=== PATIENT | male | born 1980 | race Hispanic/Latino ===

== ENCOUNTER 2016-08-27 19:55 | Emergency (ER) | payer OTHER ==
[2016-08-27] MEDS ORDERED: MORPHINE 4 MG/ML 1ML SYRINGE As Ordered ONE (22:52)
[2016-08-27] MEDS ORDERED: NAPROXEN 250 MG TAB As Ordered ONE (22:52)
[2016-08-27] MEDS ORDERED: CYCLOBENZAPRINE 10 MG TAB As Ordered ONE (22:52)
[2016-08-27] MEDS ORDERED: OXYCODONE/APAP 5MG/325MG(BULK) 1 TAB TAB As Ordered ONE (22:54)
--- NOTE | 2016-08-27 23:15 | EDDOCDS ---
Physician Documentation [facility] Name: Jae Coto Age: 35 yrs Sex: Male : 1980 Arrival Date: 08/27/2016 Time: 19:55 Bed 14 Private MD: Benito Martines Disposition: 08/27/16 22:40 Discharged to Home/Self Care. Impression: Low back pain. - Condition is Stable. - Discharge Instructions: Back Pain, Adult, Musculoskeletal Pain, Back Pain, Adult, [id number]. - Prescriptions for Naprosyn 500 mg Oral Tablet - take 1 tablet by ORAL route 2 times per day take with food; 30 tablet. Percocet 5- 325 mg Oral Tablet - take 1 tablet by ORAL route every 6 hours As needed MDD: 4 tabs; 20 tablet. Cyclobenzaprine 10 mg Oral Tablet - take 1 tablet by ORAL route 3 times per day As needed; 15 tablet. - Medication Reconciliation, Local Pharmacy Hours, Work Release Form - 3 day form. - Follow up: Benito Mratines DO; When: 2 - 3 days; Reason: Continuance of care. - Problem is an acute exacerbation. - Symptoms have improved. Historical: - Allergies: no known allergies; - Home Meds: 1. ibuprofen 600 mg Oral tab every 4 hours - PMHx: none; - PSHx: none; - Social history: Smoking status: Patient states was never smoker of tobacco. No barriers to communication noted, The patient speaks fluent Sami. - Family history: Not pertinent. - : The pt / caregiver states he / she is not on anticoagulants. Home medication list is obtained from the patient. - Exposure Risk Screening:: None identified. Vital Signs: 08/27 19:57 BP 134 / 81; Pulse 70; Resp 18; Temp 97.7(O); Pulse Ox 100% on R/A; Weight 157.85 kg / elp 348 lbs (R); Height 6 ft. 2 in. (187.96 cm) (R); Pain 10/10; 22:58 BP 127 / 77; Pulse 53; Resp 18; Temp 97.2(TE); Pulse Ox 96% on R/A; Pain 9/10; nb2 19:57 Body Mass Index 44.68 (157.85 kg, 187.96 cm) elp MDM: 22:39 morphine 4 mg IM once ordered. mm11 22:39 oxyCODONE-acetaminophen 4 pack 5 mg-325 mg 1 packets PO once; Dispense with pt, take as mm11 per instruction on package ordered. 22:39 Cyclobenzaprine 10 mg PO once ordered. mm11 22:39 Naproxen 500 mg PO once; administer with food or milk ordered. mm11 Administered Medications: 22:55 Drug: morphine 4 mg [morphine 4 mg/mL intravenous cartridge (1 mL)] Route: IM; Site: cf2 left deltoid; 22:55 Drug: oxyCODONE-acetaminophen 4 pack 1 packets [oxycodone-acetaminophen 5 mg-325 mg cf2 tablet (1 tabs)] {Co-Signature: sls1 (Tosin Armenta RN).} Route: PO; 22:55 Drug: Cyclobenzaprine 10 mg [cyclobenzaprine 10 mg tablet (1 tabs)] Route: PO; cf2 22:55 Drug: Naproxen 500 mg [naproxen 250 mg tablet (2 tabs)] Route: PO; cf2 Signatures: Bobby Moulton, DO mm11 Madelaine Rider RN RN rs3 Thu Oquendo RN RN cf2 Tosin Armenta RN sls1 MTDD
--- NOTE | 2016-08-27 23:15 | EDDOCDS ---
Nurse's Notes [facility] Name: Jae Coto Age: 35 yrs Sex: Male : 1980 Arrival Date: 08/27/2016 Time: 19:55 Bed 14 Private MD: Benito Martines Diagnosis: Low back pain Presentation: 08/27 20:08 Presenting complaint: Patient states: lower back pain since yesterday. [place] "pop" when rs3 getting out of truck. pain radiating to len[place] legs. Acute neurological deficits are not present. Mechanism of Injury: No Mechanism of Injury. Adult Sepsis Screening: The patient does not have new or worsening altered mentation. Patient's respiratory rate is less than 22. Systolic blood pressure is greater than 100. Patient has a qSOFA score of 0- Negative Sepsis Screen. Suicide/Homicide risk assessment- the patient denies having any suicidal and/or homicidal ideations and does not present with any other emotional, behavioral or mental health complaints. Status: Patient is not a office services representative or dependent. Transition of care: patient was not received from another setting of care. 20:08 Acuity: AB Level 4 rs3 20:08 Method Of Arrival: Walkin/Carried/Asstd rs3 Triage Assessment: 20:10 General: Appears in no apparent distress. Pain: Location: lumbar area. HIV screening NA rs3 for this visit Offered previously. Musculoskeletal: Parent/caregiver report the patient having Pain is 7 out of 10 on a pain scale. Historical: - Allergies: no known allergies; - Home Meds: 1. ibuprofen 600 mg Oral tab every 4 hours - PMHx: none; - PSHx: none; - Social history: Smoking status: Patient states was never smoker of tobacco. No barriers to communication noted, The patient speaks fluent Frisian. - Family history: Not pertinent. - : The pt / caregiver states he / she is not on anticoagulants. Home medication list is obtained from the patient. - Exposure Risk Screening:: None identified. Screenin:10 Screening information is obtained from the patient. Fall risk: No risks identified. cf2 Assistance ADL's: requires no assistance with activities of daily living. Abuse/DV Screen: The patient / caregiver reports he/she is: not in a situation that causes fear, pain or injury. Nutritional screening: No deficits noted. Advance Directives: Further advance directive information is declined. home support is adequate. Assessment: 21:53 General: Patient received from waiting room . cf2 23:10 Reassessment: Patient appears in no apparent distress at this time. Patient denies pain cf2 at this time. Adult Sepsis Screening: The patient does not have new or worsening altered mentation. Patient's respiratory rate is less than 22. Systolic blood pressure is greater than 100. Patient has a qSOFA score of 0- Negative Sepsis Screen. Pain: Denies pain. Neurological: No deficits noted. EENT: No deficits noted. Cardiovascular: No deficits noted. Respiratory: No deficits noted. GI: No deficits noted. : No deficits noted. Derm: No deficits noted. Musculoskeletal: No deficits noted. Injury Description: No known injury. Vital Signs: 19:57 BP 134 / 81; Pulse 70; Resp 18; Temp 97.7(O); Pulse Ox 100% on R/A; Weight 157.85 kg elp (R); Height 6 ft. 2 in. (187.96 cm) (R); Pain 10/10; 22:58 BP 127 / 77; Pulse 53; Resp 18; Temp 97.2(TE); Pulse Ox 96% on R/A; Pain 9/10; nb2 19:57 Body Mass Index 44.68 (157.85 kg, 187.96 cm) [facility] Vitals: 19:57 Log In Time: August 27, 2016 at 19:55. [facility] ED Course: 19:56 Patient visited by Hina Elkins PCA. elp 19:56 Benito Martines DO is Private Physician. elp 19:56 Patient moved to Waiting elp 19:57 Patient visited by Hina Elkins PCA. elp 19:57 Patient moved to Pre RCE elp 20:10 Triage Initiated rs3 21:44 Patient moved to 14 jo3 21:50 Thu Oquendo,VIDAL is Primary Nurse. cf2 21:50 Patient visited by Thu Oquendo,VIDAL. cf2 21:52 Patient visited by Thu Oquendo,VIDAL. cf2 22:26 Bobby Moulton DO is Attending Physician. mm11 22:26 Patient visited by Bobby Moulton DO. mm11 22:38 Patient visited by Bobby Moulton DO. mm11 22:40 Benito Martines DO is Referral Physician. mm11 22:58 Patient visited by Khadijah Estrada. nb2 23:09 Patient visited by Thu Oquendo RN. cf2 23:10 Patient visited by Thu Oquendo RN. cf2 23:10 The patient / caregiver is instructed regarding the plan of care and ED course. cf2 23:10 No IV's were initiated during this patient's visit. No procedures done that require cf2 assistance. Administered Medications: 22:55 Drug: morphine 4 mg [morphine 4 mg/mL intravenous cartridge (1 mL)] Route: IM; Site: cf2 left deltoid; 22:55 Drug: oxyCODONE-acetaminophen 4 pack 1 packets [oxycodone-acetaminophen 5 mg-325 mg cf2 tablet (1 tabs)] {Co-Signature: sls1 (Tosin Armenta RN).} Route: PO; 22:55 Drug: Cyclobenzaprine 10 mg [cyclobenzaprine 10 mg tablet (1 tabs)] Route: PO; cf2 22:55 Drug: Naproxen 500 mg [naproxen 250 mg tablet (2 tabs)] Route: PO; cf2 Order Results: There are currently no results for this order. Outcome: 22:40 Discharge ordered by Provider. mm11 23:10 Discharge Assessment: Patient awake, alert and oriented x 3. No cognitive and/or cf2 functional deficits noted. Patient verbalized understanding of disposition instructions. Patient awake and alert. Oriented to person, place and time. patient administered narcotics - yes. Pt provided with safe discharge. The following High Risk Discharge criteria are identified: None. Discharged to home. Condition: good Condition: stable. No special radiology studies were completed. Property :Personal belongings accompany Pt. 23:14 Patient left the ED. cf2 Signatures: Shani Mcpherson RN RN jo3 Maynard, Matthew, DO DO mm11 Madelaine Rider RN RN rs3 Hina Elkins, RESIDENTIAL TECH RESIDENTIAL TECH elp Thu Oquendo RN RN cf2 Khadijah Estrada nb2 Tosin Armenta RN sls1 MTDD
--- NOTE | 2016-08-30 00:15 | EDDOCDS ---
Nurse's Notes [facility] Name: Jae Coto Age: 35 yrs Sex: Male : 1980 Arrival Date: 08/27/2016 Time: 19:55 Bed 14 Private MD: Benito Martines Diagnosis: Low back pain Presentation: 08/27 20:08 Presenting complaint: Patient states: lower back pain since yesterday. [place] "pop" when rs3 getting out of truck. pain radiating to [place] legs. Acute neurological deficits are not present. Mechanism of Injury: No Mechanism of Injury. Adult Sepsis Screening: The patient does not have new or worsening altered mentation. Patient's respiratory rate is less than 22. Systolic blood pressure is greater than 100. Patient has a qSOFA score of 0- Negative Sepsis Screen. Suicide/Homicide risk assessment- the patient denies having any suicidal and/or homicidal ideations and does not present with any other emotional, behavioral or mental health complaints. Status: Patient is not a hosted services analyst or dependent. Transition of care: patient was not received from another setting of care. 20:08 Acuity: AB Level 4 rs3 20:08 Method Of Arrival: Walkin/Carried/Asstd rs3 Triage Assessment: 20:10 General: Appears in no apparent distress. Pain: Location: lumbar area. HIV screening NA rs3 for this visit Offered previously. Musculoskeletal: Parent/caregiver report the patient having Pain is 7 out of 10 on a pain scale. Historical: - Allergies: no known allergies; - Home Meds: 1. ibuprofen 600 mg Oral tab every 4 hours - PMHx: none; - PSHx: none; - Social history: Smoking status: Patient states was never smoker of tobacco. No barriers to communication noted, The patient speaks fluent Urdu. - Family history: Not pertinent. - : The pt / caregiver states he / she is not on anticoagulants. Home medication list is obtained from the patient. - Exposure Risk Screening:: None identified. Screenin:10 Screening information is obtained from the patient. Fall risk: No risks identified. cf2 Assistance ADL's: requires no assistance with activities of daily living. Abuse/DV Screen: The patient / caregiver reports he/she is: not in a situation that causes fear, pain or injury. Nutritional screening: No deficits noted. Advance Directives: Further advance directive information is declined. home support is adequate. Assessment: 21:53 General: Patient received from waiting room . cf2 23:10 Reassessment: Patient appears in no apparent distress at this time. Patient denies pain cf2 at this time. Adult Sepsis Screening: The patient does not have new or worsening altered mentation. Patient's respiratory rate is less than 22. Systolic blood pressure is greater than 100. Patient has a qSOFA score of 0- Negative Sepsis Screen. Pain: Denies pain. Neurological: No deficits noted. EENT: No deficits noted. Cardiovascular: No deficits noted. Respiratory: No deficits noted. GI: No deficits noted. : No deficits noted. Derm: No deficits noted. Musculoskeletal: No deficits noted. Injury Description: No known injury. Vital Signs: 19:57 BP 134 / 81; Pulse 70; Resp 18; Temp 97.7(O); Pulse Ox 100% on R/A; Weight 157.85 kg elp (R); Height 6 ft. 2 in. (187.96 cm) (R); Pain 10/10; 22:58 BP 127 / 77; Pulse 53; Resp 18; Temp 97.2(TE); Pulse Ox 96% on R/A; Pain 9/10; nb2 19:57 Body Mass Index 44.68 (157.85 kg, 187.96 cm) [facility] Vitals: 19:57 Log In Time: August 27, 2016 at 19:55. [facility] ED Course: 19:56 Patient visited by Hina Elkins PCA. elp 19:56 Benito Martines DO is Private Physician. elp 19:56 Patient moved to Waiting elp 19:57 Patient visited by Hina Elkins PCA. elp 19:57 Patient moved to Pre RCE elp 20:10 Triage Initiated rs3 21:44 Patient moved to 14 jo3 21:50 Thu Oquendo,VIDAL is Primary Nurse. cf2 21:50 Patient visited by Thu Oquendo,VIDAL. cf2 21:52 Patient visited by Thu Oquendo,VIDAL. cf2 22:26 Bobby Moulton DO is Attending Physician. mm11 22:26 Patient visited by Bobby Moulton DO. mm11 22:38 Patient visited by Bobby Moulton DO. mm11 22:40 Benito Martines DO is Referral Physician. mm11 22:58 Patient visited by Khadijah Estrada. nb2 23:09 Patient visited by Thu Oquendo RN. cf2 23:10 Patient visited by Thu Oquendo RN. cf2 23:10 The patient / caregiver is instructed regarding the plan of care and ED course. cf2 23:10 No IV's were initiated during this patient's visit. No procedures done that require cf2 assistance. 23:15 Patient name changed from Jae\\S\\\\S\\Coto\\S\\ to Jae\\S\\ \\S\\Coto. EDMS 08/28 09:28 T-Sheet-- Draft Copy was scanned into [employer] and attached to record. gb Administered Medications: 08/27 22:55 Drug: morphine 4 mg [morphine 4 mg/mL intravenous cartridge (1 mL)] Route: IM; Site: cf2 left deltoid; 22:55 Drug: oxyCODONE-acetaminophen 4 pack 1 packets [oxycodone-acetaminophen 5 mg-325 mg cf2 tablet (1 tabs)] {Co-Signature: sls1 (Tosin Armenta RN).} Route: PO; 22:55 Drug: Cyclobenzaprine 10 mg [cyclobenzaprine 10 mg tablet (1 tabs)] Route: PO; cf2 22:55 Drug: Naproxen 500 mg [naproxen 250 mg tablet (2 tabs)] Route: PO; cf2 Order Results: There are currently no results for this order. Outcome: 22:40 Discharge ordered by Provider. mm11 23:10 Discharge Assessment: Patient awake, alert and oriented x 3. No cognitive and/or cf2 functional deficits noted. Patient verbalized understanding of disposition instructions. Patient awake and alert. Oriented to person, place and time. patient administered narcotics - yes. Pt provided with safe discharge. The following High Risk Discharge criteria are identified: None. Discharged to home. Condition: good Condition: stable. No special radiology studies were completed. Property :Personal belongings accompany Pt. 23:14 Patient left the ED. cf2 Signatures: [facility] Mckenzie Crespo, Michele Reg Shani Mcpherson RN RN jo3 Bobby Moulton DO DO mm11 Madelaine RiderRN RN rs3 Hina Elkins, CAKE STRIPPER CAKE STRIPPER elp Thu OquendoRN RN cf2 Khadijah Estrada2 Tosin Armenta RN sls1 Chart Complete MTDD
--- NOTE | 2016-08-30 00:15 | EDDOCDS ---
Physician Documentation [facility] Name: Jae Coto Age: 35 yrs Sex: Male : 1980 Arrival Date: 08/27/2016 Time: 19:55 Bed 14 Private MD: Benito Martines Disposition: 08/27/16 22:40 Discharged to Home/Self Care. Impression: Low back pain. - Condition is Stable. - Discharge Instructions: Back Pain, Adult, Musculoskeletal Pain, Back Pain, Adult, [id number]. - Prescriptions for Naprosyn 500 mg Oral Tablet - take 1 tablet by ORAL route 2 times per day take with food; 30 tablet. Percocet 5- 325 mg Oral Tablet - take 1 tablet by ORAL route every 6 hours As needed MDD: 4 tabs; 20 tablet. Cyclobenzaprine 10 mg Oral Tablet - take 1 tablet by ORAL route 3 times per day As needed; 15 tablet. - Medication Reconciliation, Local Pharmacy Hours, Work Release Form - 3 day form. - Follow up: Benito Martines DO; When: 2 - 3 days; Reason: Continuance of care. - Problem is an acute exacerbation. - Symptoms have improved. Historical: - Allergies: no known allergies; - Home Meds: 1. ibuprofen 600 mg Oral tab every 4 hours - PMHx: none; - PSHx: none; - Social history: Smoking status: Patient states was never smoker of tobacco. No barriers to communication noted, The patient speaks fluent Vietnamese. - Family history: Not pertinent. - : The pt / caregiver states he / she is not on anticoagulants. Home medication list is obtained from the patient. - Exposure Risk Screening:: None identified. Vital Signs: 08/27 19:57 BP 134 / 81; Pulse 70; Resp 18; Temp 97.7(O); Pulse Ox 100% on R/A; Weight 157.85 kg / elp 348 lbs (R); Height 6 ft. 2 in. (187.96 cm) (R); Pain 10/10; 22:58 BP 127 / 77; Pulse 53; Resp 18; Temp 97.2(TE); Pulse Ox 96% on R/A; Pain 9/10; nb2 19:57 Body Mass Index 44.68 (157.85 kg, 187.96 cm) elp MDM: 22:39 morphine 4 mg IM once ordered. mm11 22:39 oxyCODONE-acetaminophen 4 pack 5 mg-325 mg 1 packets PO once; Dispense with pt, take as mm11 per instruction on package ordered. 22:39 Cyclobenzaprine 10 mg PO once ordered. mm11 22:39 Naproxen 500 mg PO once; administer with food or milk ordered. mm11 08/28 09:28 T-Sheet-- Draft Copy was scanned into [employer] and attached to record. gb Administered Medications: 08/27 22:55 Drug: morphine 4 mg [morphine 4 mg/mL intravenous cartridge (1 mL)] Route: IM; Site: cf2 left deltoid; 22:55 Drug: oxyCODONE-acetaminophen 4 pack 1 packets [oxycodone-acetaminophen 5 mg-325 mg cf2 tablet (1 tabs)] {Co-Signature: sls1 (Tosin Armenta RN).} Route: PO; 22:55 Drug: Cyclobenzaprine 10 mg [cyclobenzaprine 10 mg tablet (1 tabs)] Route: PO; cf2 22:55 Drug: Naproxen 500 mg [naproxen 250 mg tablet (2 tabs)] Route: PO; cf2 Signatures: Mckenzie Crespo, Reg Reg Bobby Jarrell, DO mm11 Madelaine Rider RN RN rs3 Thu Oquendo RN RN cf2 Tosin Armenta RN sls1 The chart was reviewed and I authenticate all verbal orders and agree with the evaluation and treatment provided.Attachments: 08/28 09:28 T-Sheet-- Draft Copy gb Chart Complete MTDD
--- NOTE | 2016-08-30 00:16 | EDDOCDS ---
Physician Documentation [facility] Name: Jae Coto Age: 35 yrs Sex: Male : 1980 Arrival Date: 08/27/2016 Time: 19:55 Bed 14 Private MD: Benito Martines Disposition: 08/27/16 22:40 Discharged to Home/Self Care. Impression: Low back pain. - Condition is Stable. - Discharge Instructions: Back Pain, Adult, Musculoskeletal Pain, Back Pain, Adult, [id number]. - Prescriptions for Naprosyn 500 mg Oral Tablet - take 1 tablet by ORAL route 2 times per day take with food; 30 tablet. Percocet 5- 325 mg Oral Tablet - take 1 tablet by ORAL route every 6 hours As needed MDD: 4 tabs; 20 tablet. Cyclobenzaprine 10 mg Oral Tablet - take 1 tablet by ORAL route 3 times per day As needed; 15 tablet. - Medication Reconciliation, Local Pharmacy Hours, Work Release Form - 3 day form. - Follow up: Benito Martines DO; When: 2 - 3 days; Reason: Continuance of care. - Problem is an acute exacerbation. - Symptoms have improved. Historical: - Allergies: no known allergies; - Home Meds: 1. ibuprofen 600 mg Oral tab every 4 hours - PMHx: none; - PSHx: none; - Social history: Smoking status: Patient states was never smoker of tobacco. No barriers to communication noted, The patient speaks fluent Arabic. - Family history: Not pertinent. - : The pt / caregiver states he / she is not on anticoagulants. Home medication list is obtained from the patient. - Exposure Risk Screening:: None identified. Vital Signs: 08/27 19:57 BP 134 / 81; Pulse 70; Resp 18; Temp 97.7(O); Pulse Ox 100% on R/A; Weight 157.85 kg / elp 348 lbs (R); Height 6 ft. 2 in. (187.96 cm) (R); Pain 10/10; 22:58 BP 127 / 77; Pulse 53; Resp 18; Temp 97.2(TE); Pulse Ox 96% on R/A; Pain 9/10; nb2 19:57 Body Mass Index 44.68 (157.85 kg, 187.96 cm) elp MDM: 22:39 morphine 4 mg IM once ordered. mm11 22:39 oxyCODONE-acetaminophen 4 pack 5 mg-325 mg 1 packets PO once; Dispense with pt, take as mm11 per instruction on package ordered. 22:39 Cyclobenzaprine 10 mg PO once ordered. mm11 22:39 Naproxen 500 mg PO once; administer with food or milk ordered. mm11 08/28 09:28 T-Sheet-- Draft Copy was scanned into [employer] and attached to record. gb Administered Medications: 08/27 22:55 Drug: morphine 4 mg [morphine 4 mg/mL intravenous cartridge (1 mL)] Route: IM; Site: cf2 left deltoid; 22:55 Drug: oxyCODONE-acetaminophen 4 pack 1 packets [oxycodone-acetaminophen 5 mg-325 mg cf2 tablet (1 tabs)] {Co-Signature: sls1 (Tosin Armenta RN).} Route: PO; 22:55 Drug: Cyclobenzaprine 10 mg [cyclobenzaprine 10 mg tablet (1 tabs)] Route: PO; cf2 22:55 Drug: Naproxen 500 mg [naproxen 250 mg tablet (2 tabs)] Route: PO; cf2 Signatures: Mckenzie Crespo, Reg Reg Bobby Jarrell, DO mm11 Madelaine Rider RN RN rs3 Thu Oquendo RN RN cf2 Tosin Armenta RN sls1 The chart was reviewed and I authenticate all verbal orders and agree with the evaluation and treatment provided.Attachments: 08/28 09:28 T-Sheet-- Draft Copy gb Chart Complete MTDD
== END 2016-08-27 23:14 | disposition home or self-care (01) ==
LOC: M ED 19:55
DX: M54.5 Low back pain (principal)

== ENCOUNTER 2016-09-01 12:58 | Emergency (ER) | payer OTHER ==
--- NOTE | 2016-09-01 14:36 | EDDOCDS ---
Physician Documentation [facility] Name: Jae Coto Age: 35 yrs Sex: Male : 1980 Arrival Date: 09/01/2016 Time: 12:58 Bed Triage 3 Private MD: Nikko Finn Disposition: 09/01/16 14:25 Discharged to Home/Self Care. Impression: Low back pain - mechanical, recheck. - Condition is Stable. - Discharge Instructions: Back Pain, Adult. - Prescriptions for Diclofenac Sodium 75 mg Oral Tablet, Delayed Release (E.C.) - take 1 tablet by ORAL route 2 times per day; 30 tablet. - Medication Reconciliation, Work Release Form - 3 day, [facility] Followup form. - Follow up: [facility]; When: Call to arrange an appointment; Reason: Wound/Symptom Recheck, Recheck today's complaints, Worsening of conditions, Continuance of care. - Problem is an ongoing problem. - Symptoms are unchanged. Historical: - Allergies: no known allergies; - Home Meds: 1. Percocet 5-325 mg Oral tab 1 tab (Last dose: 08/31/2016 00:02) 2. Naprosyn 500 mg Oral tab 2 times per day (Last dose: 09/01/2016 09:00) 3. cyclobenzaprine 10 mg Oral tab 3 times per day (Last dose: 09/01/2016 00:02) - PMHx: none; - PSHx: none; - Social history: Smoking status: Patient states was never smoker of tobacco. No barriers to communication noted, The patient speaks fluent Burkinan, Speaks appropriately for age. - Family history: Not pertinent. - : The pt / caregiver states he / she is not on anticoagulants. Home medication list is obtained from the patient. - Exposure Risk Screening:: None identified. Vital Signs: 09/01 13:00 BP 103 / 85; Pulse 101; Resp 20; Temp 97.5(O); Pulse Ox 96% on R/A; Weight 157.85 kg / elp 348 lbs (R); Height 6 ft. 2 in. (187.96 cm) (R); 14:33 BP 127 / 77; Pulse 70; Resp 16; Temp 97.6(T); Pulse Ox 97% on R/A; Pain 8/10; mlb1 13:00 Body Mass Index 44.68 (157.85 kg, 187.96 cm) elp Signatures: Jeff Carrera RN RN mlb1 Pooja Garcia RN RN hs1 Jayson Beckett PA-C PATania cc10 MTDD
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
--- NOTE | 2016-09-03 15:36 | EDDOCDS ---
Physician Documentation [facility] Name: Jae Coto Age: 35 yrs Sex: Male : 1980 Arrival Date: 09/01/2016 Time: 12:58 Bed Triage 3 Private MD: Nikko Finn Disposition: 09/01/16 14:25 Discharged to Home/Self Care. Impression: Low back pain - mechanical, recheck. - Condition is Stable. - Discharge Instructions: Back Pain, Adult. - Prescriptions for Diclofenac Sodium 75 mg Oral Tablet, Delayed Release (E.C.) - take 1 tablet by ORAL route 2 times per day; 30 tablet. - Medication Reconciliation, Work Release Form - 3 day, [facility] Followup form. - Follow up: [facility]; When: Call to arrange an appointment; Reason: Wound/Symptom Recheck, Recheck today's complaints, Worsening of conditions, Continuance of care. - Problem is an ongoing problem. - Symptoms are unchanged. Historical: - Allergies: no known allergies; - Home Meds: 1. Percocet 5-325 mg Oral tab 1 tab (Last dose: 08/31/2016 00:02) 2. Naprosyn 500 mg Oral tab 2 times per day (Last dose: 09/01/2016 09:00) 3. cyclobenzaprine 10 mg Oral tab 3 times per day (Last dose: 09/01/2016 00:02) - PMHx: none; - PSHx: none; - Social history: Smoking status: Patient states was never smoker of tobacco. No barriers to communication noted, The patient speaks fluent Emirati, Speaks appropriately for age. - Family history: Not pertinent. - : The pt / caregiver states he / she is not on anticoagulants. Home medication list is obtained from the patient. - Exposure Risk Screening:: None identified. Vital Signs: 09/01 13:00 BP 103 / 85; Pulse 101; Resp 20; Temp 97.5(O); Pulse Ox 96% on R/A; Weight 157.85 kg / elp 348 lbs (R); Height 6 ft. 2 in. (187.96 cm) (R); 14:33 BP 127 / 77; Pulse 70; Resp 16; Temp 97.6(T); Pulse Ox 97% on R/A; Pain 8/10; mlb1 13:00 Body Mass Index 44.68 (157.85 kg, 187.96 cm) elp MDM: 14:38 [facility] Payment Agreement was scanned into [employer] and attached to record. jp5 14:38 Financial registration complete. jp5 09/02 09:46 T-Sheet-- Draft Copy was scanned into [employer] and attached to record. gb Signatures: Mckenzie Crespo, Reg Reg gb Jeff Carrera RN RN mlb1 Pooja Garcia RN RN hs1 Jayson Beckett, PA-C PA-C cc10 Miguel Gutierrez jp5 The chart was reviewed and I authenticate all verbal orders and agree with the evaluation and treatment provided.Attachments: 09/01 14:38 [facility] [place] Agreement jp5 09/02 09:46 T-Sheet-- Draft Copy gb Chart Complete MTDD
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
--- NOTE | 2016-09-03 15:36 | EDDOCDS ---
Physician Documentation [facility] Name: Jae Coto Age: 35 yrs Sex: Male : 1980 Arrival Date: 09/01/2016 Time: 12:58 Bed Triage 3 Private MD: Nikko Finn Disposition: 09/01/16 14:25 Discharged to Home/Self Care. Impression: Low back pain - mechanical, recheck. - Condition is Stable. - Discharge Instructions: Back Pain, Adult. - Prescriptions for Diclofenac Sodium 75 mg Oral Tablet, Delayed Release (E.C.) - take 1 tablet by ORAL route 2 times per day; 30 tablet. - Medication Reconciliation, Work Release Form - 3 day, [facility] Followup form. - Follow up: [facility]; When: Call to arrange an appointment; Reason: Wound/Symptom Recheck, Recheck today's complaints, Worsening of conditions, Continuance of care. - Problem is an ongoing problem. - Symptoms are unchanged. Historical: - Allergies: no known allergies; - Home Meds: 1. Percocet 5-325 mg Oral tab 1 tab (Last dose: 08/31/2016 00:02) 2. Naprosyn 500 mg Oral tab 2 times per day (Last dose: 09/01/2016 09:00) 3. cyclobenzaprine 10 mg Oral tab 3 times per day (Last dose: 09/01/2016 00:02) - PMHx: none; - PSHx: none; - Social history: Smoking status: Patient states was never smoker of tobacco. No barriers to communication noted, The patient speaks fluent Colombian, Speaks appropriately for age. - Family history: Not pertinent. - : The pt / caregiver states he / she is not on anticoagulants. Home medication list is obtained from the patient. - Exposure Risk Screening:: None identified. Vital Signs: 09/01 13:00 BP 103 / 85; Pulse 101; Resp 20; Temp 97.5(O); Pulse Ox 96% on R/A; Weight 157.85 kg / elp 348 lbs (R); Height 6 ft. 2 in. (187.96 cm) (R); 14:33 BP 127 / 77; Pulse 70; Resp 16; Temp 97.6(T); Pulse Ox 97% on R/A; Pain 8/10; mlb1 13:00 Body Mass Index 44.68 (157.85 kg, 187.96 cm) elp MDM: 14:38 [facility] Payment Agreement was scanned into [employer] and attached to record. jp5 14:38 Financial registration complete. jp5 09/02 09:46 T-Sheet-- Draft Copy was scanned into [employer] and attached to record. gb Signatures: Mckenzie Crespo, Reg Reg gb Jeff Carrera RN RN mlb1 Pooja Garcia RN RN hs1 Jayson Beckett, PA-C PA-C cc10 Miguel Gutierrez jp5 The chart was reviewed and I authenticate all verbal orders and agree with the evaluation and treatment provided.Attachments: 09/01 14:38 [facility] Payment Agreement jp5 09/02 09:46 T-Sheet-- Draft Copy gb Chart Complete MTDD
== END 2016-09-01 14:35 | disposition home or self-care (01) ==
LOC: M ED 12:58
DX: M54.5 Low back pain (principal); Z79.899 Other long term (current) drug therapy

== ENCOUNTER → 2017-11-22 | Outpatient (CLI) | payer OTHER ==
[2017-11-22 16:50] LABS: BASO % 0.6 % (0.0-1.0); EOS % 0.6 % (0.0-3.0); HEMATOCRIT 43.2 % (42.0-52.0); HEMOGLOBIN 14.2 g/dl (13.5-17.5); IMMATURE GRANULOCYTE % 0.1 % (0-3.0); LYMPH # 1.7 10^3/uL (1.5-4.5); LYMPH % 23.3 % (24.0-44.0); MEAN CORPUSCULAR HEMOGLOBIN 30.2 pg (27.0-33.0); MEAN CORPUSCULAR HGB CONC 32.9 g/dl (32.0-36.5); MEAN CORPUSCULAR VOLUME 91.9 fl (80.0-96.0); MONO # 0.6 10^3/uL (0.0-0.8); MONO % 7.6 % (0.0-5.0); NEUTROPHILS # 4.9 10^3/uL (1.8-7.7); NEUTROPHILS % 67.8 % (36.0-66.0); PLATELET COUNT, AUTOMATED 255 10^3/uL (150-450); RED CELL DISTRIBUTION WIDTH 12.8 % (11.5-14.5); WHITE BLOOD COUNT 7.3 10^3/uL (4.0-10.0)
[2017-11-22 17:10] LABS: ALBUMIN/GLOBULIN RATIO 1.21 (1.00-1.93); ALKALINE PHOSPHATASE 62 U/L (45-117); ALT/SGPT 18 U/L (12-78); ANION GAP 9 MEQ/L (8-16); AST/SGOT 13 U/L (7-37); BILIRUBIN,TOTAL 0.6 MG/DL (0.2-1.0); BLOOD UREA NITROGEN 19 MG/DL (7-18); CALCIUM LEVEL 9.1 MG/DL (8.5-10.1); CARBON DIOXIDE LEVEL 26 MEQ/L (21-32); CHLORIDE LEVEL 109 MEQ/L (98-107); CREATININE FOR GFR 1.17 MG/DL (0.70-1.30); GLOMERULAR FILTRATION RATE > 60.0 (>60); GLUCOSE, FASTING 71 MG/DL (70-100); POTASSIUM SERUM 4.6 MEQ/L (3.5-5.1); SODIUM LEVEL 144 MEQ/L (136-145); TOTAL PROTEIN 7.3 GM/DL (6.4-8.2)
== END ==
LOC: M WUC 10:27
DX: N50.9 Disorder of male genital organs, unspecified (principal)
CPT/HCPCS: 80053

== ENCOUNTER → 2017-12-13 | Outpatient (REF) | payer OTHER ==
[2017-12-13 16:36] LABS: APPEARANCE, URINE CLEAR (CLEAR); BACTERIA, URINE AUTO NEGATIVE (NEGATIVE); BILIRUBIN, URINE AUTO NEGATIVE (NEGATIVE); BLOOD, URINE BLOOD NEGATIVE (NEGATIVE); COLOR, URINE YELLOW (YELLOW); GLUCOSE, URINE (UA) AUTO NEGATIVE (NEGATIVE); KETONE, URINE AUTO NEGATIVE (NEGATIVE); LEUKOCYTE ESTERASE, URINE AUTO NEGATIVE (NEGATIVE); MUCUS, URINE SMALL (NEGATIVE); NITRITE, URINE AUTO NEGATIVE (NEGATIVE); PROTEIN, URINE AUTO NEGATIVE (NEGATIVE); RBC, URINE AUTO 4 /HPF (0-3); SPECIFIC GRAVITY URINE AUTO 1.023 (1.002-1.035); SQUAMOUS EPITHELIAL CELL UR AU 0 /HPF (0-6); UROBILINOGEN, URINE AUTO 0.2 mg/dL (0.0-2.0); WBC, URINE AUTO 1 /HPF (0-3)
== END ==
LOC: M LAB REF 16:23
DX: N50.9 Disorder of male genital organs, unspecified (principal)
CPT/HCPCS: 81001

== ENCOUNTER → 2017-12-21 | Outpatient (REF) | payer OTHER ==
[2017-12-21 13:53] LABS: APPEARANCE, URINE CLEAR (CLEAR); BACTERIA, URINE AUTO NEGATIVE (NEGATIVE); BILIRUBIN, URINE AUTO NEGATIVE (NEGATIVE); BLOOD, URINE BLOOD NEGATIVE (NEGATIVE); COLOR, URINE YELLOW (YELLOW); GLUCOSE, URINE (UA) AUTO NEGATIVE (NEGATIVE); KETONE, URINE AUTO NEGATIVE (NEGATIVE); LEUKOCYTE ESTERASE, URINE AUTO NEGATIVE (NEGATIVE); MUCUS, URINE SMALL (NEGATIVE); NITRITE, URINE AUTO NEGATIVE (NEGATIVE); PROTEIN, URINE AUTO NEGATIVE (NEGATIVE); RBC, URINE AUTO 0 /HPF (0-3); SPECIFIC GRAVITY URINE AUTO 1.026 (1.002-1.035); SQUAMOUS EPITHELIAL CELL UR AU 0 /HPF (0-6); UROBILINOGEN, URINE AUTO 0.2 mg/dL (0.0-2.0); WBC, URINE AUTO 0 /HPF (0-3)
== END ==
LOC: M SMT 13:12
DX: R31.29 Other microscopic hematuria (principal)

== ENCOUNTER → 2018-11-03 | Outpatient (CLI) | payer OTHER ==
[2018-11-03 13:09] LABS: ALBUMIN 3.9 GM/DL (3.2-5.2); ALT/SGPT 20 U/L (12-78); BILIRUBIN,TOTAL 0.5 MG/DL (0.2-1.0); BLOOD UREA NITROGEN 19 MG/DL (7-18); CARBON DIOXIDE LEVEL 29 MEQ/L (21-32); CHLORIDE LEVEL 108 MEQ/L (98-107); CREATININE FOR GFR 1.08 MG/DL (0.70-1.30); GLOMERULAR FILTRATION RATE > 60.0 (>60); GLUCOSE, FASTING 93 MG/DL (70-100); POTASSIUM SERUM 4.4 MEQ/L (3.5-5.1); SODIUM LEVEL 141 MEQ/L (136-145); TOTAL PROTEIN 6.7 GM/DL (6.4-8.2)
== END ==
LOC: M WUC 09:32
PROVIDERS: ATTEND Nurse Practitioner Family
DX: M79.605 Pain in left leg (principal)

== ENCOUNTER → 2018-11-21 | Outpatient (CLI) | payer OTHER ==
--- NOTE | 2018-11-21 15:12 | REP ---
LUMBAR SPINE, FIVE VIEWS: HISTORY: Left back pain. There is no acute fracture or subluxation. The L4-5 and L5-S1 intervertebral discs are decreased in height consistent with disc degeneration. The facet joints are normal in appearance. IMPRESSION: Degenerative change, as described above. Electronically Signed by Benito Angeles MD 11/21/2018 03:15 P
== END ==
LOC: M WUC 11:38
PROVIDERS: ATTEND Nurse Practitioner Family
DX: M51.36 Other intervertebral disc degeneration, lumbar region (principal); M51.37 Other intervertebral disc degeneration, lumbosacral region

== ENCOUNTER → 2019-09-27 | Outpatient (CLI) | payer OTHER ==
[2019-09-27 07:47] LABS: APPEARANCE, URINE CLEAR (CLEAR); BACTERIA, URINE AUTO NEGATIVE (NEGATIVE); BILIRUBIN, URINE AUTO NEGATIVE (NEGATIVE); BLOOD, URINE BLOOD NEGATIVE (NEGATIVE); COLOR, URINE STRAW (YELLOW); GLUCOSE, URINE (UA) AUTO NEGATIVE (NEGATIVE); KETONE, URINE AUTO NEGATIVE (NEGATIVE); LEUKOCYTE ESTERASE, URINE AUTO NEGATIVE (NEGATIVE); NITRITE, URINE AUTO NEGATIVE (NEGATIVE); PROTEIN, URINE AUTO NEGATIVE (NEGATIVE); RBC, URINE AUTO 0 /HPF (0-3); SPECIFIC GRAVITY URINE AUTO 1.012 (1.002-1.035); SQUAMOUS EPITHELIAL CELL UR AU 0 /HPF (0-6); UROBILINOGEN, URINE AUTO 0.2 mg/dL (0.0-2.0); WBC, URINE AUTO 1 /HPF (0-3)
[2019-09-27 07:58] LABS: HEMATOCRIT 43.5 % (42.0-52.0); HEMOGLOBIN 14.3 g/dl (13.5-17.5); MEAN CORPUSCULAR HEMOGLOBIN 29.5 pg (27.0-33.0); MEAN CORPUSCULAR HGB CONC 32.9 g/dl (32.0-36.5); MEAN CORPUSCULAR VOLUME 89.7 fl (80.0-96.0); PLATELET COUNT, AUTOMATED 261 10^3/uL (150-450); RED BLOOD COUNT 4.85 10^6/uL (4.30-6.10)
[2019-09-27 08:18] LABS: ALT/SGPT 29 U/L (12-78); BILIRUBIN,TOTAL 0.6 MG/DL (0.2-1.0); BLOOD UREA NITROGEN 22 MG/DL (7-18); C REACTIVE PROTEIN QUANTITATIV < 0.30 MG/DL (0.00-0.30); CALCIUM LEVEL 8.9 MG/DL (8.5-10.1); CARBON DIOXIDE LEVEL 26 MEQ/L (21-32); CHLORIDE LEVEL 105 MEQ/L (98-107); CREATININE FOR GFR 1.25 MG/DL (0.70-1.30); GLOMERULAR FILTRATION RATE > 60.0 (>60); GLUCOSE, FASTING 86 MG/DL (70-100); POTASSIUM SERUM 4.4 MEQ/L (3.5-5.1); SODIUM LEVEL 138 MEQ/L (136-145); TOTAL PROTEIN 7.2 GM/DL (6.4-8.2)
[2019-09-27 08:28] LABS: ERYTHROCYTE SEDIMENTATION RATE 5 mm/hr (0-15)
[2019-09-27 10:22] LABS: MONO SCRN NEGATIVE (NEGATIVE)
[2019-09-27 10:54] LABS: HEPATITIS C VIRUS ABY INDEX < 0.0 INDEX (<0.8)
[2019-09-27 10:55] LABS: HIV 1&2 SCREEN CENTAUR NEGATIVE (NEGATIVE)
[2019-09-27 10:56] LABS: HEPATITIS A ANTIBODY IGM NEGATIVE (NEGATIVE)
[2019-09-29 00:07] LABS: ANTI DOUBLE STRAND-DNA AB 1 IU/mL (0-9); ANTINUCLEAR ANTIBODIES DIRECT Positive (Negative); HBV HBV DNA not detected IU/mL (.); Lyme Disease IgG/IgM Antibodie <0.91 ISR (0.00-0.90); Lyme Disease IgM Ab Quantitati <0.80 index (0.00-0.79); RNP ANTIBODIES <0.2 AI (0.0-0.9); SJOGREN'S ANTI SS-A <0.2 AI (0.0-0.9); SJOGREN'S ANTI SS-B 0.5 AI (0.0-0.9); SMITH ANTIBODIES <0.2 AI (0.0-0.9)
== END ==
LOC: M LAB 06:58
PROVIDERS: ATTEND Family Medicine
DX: R50.9 Fever, unspecified (principal)

== ENCOUNTER → 2019-10-19 | Outpatient (CLI) | payer OTHER ==
--- NOTE | 2019-10-19 13:04 | REP ---
MRI LEFT HIP: TECHNIQUE: Coronal T1, STIR through the pelvis, T2 fat sat, left hip all three planes, axial oblique proton density fat sat left hip. Moderately severe arthritic changes are seen at the left hip joint. There is diffuse chondromalacia which is moderately severe. There is mild subchondral marrow edema and cystic change centrally in the acetabulum. Prominent subchondral cysts are seen in the femoral head centrally with some adjacent marrow edema. The subchondral cysts measure up to 1.3 cm in diameter. There are no definite signs of avascular necrosis. There is a large spur of the lateral aspect of the femoral head. Note is also made of moderate diffuse chondromalacia at the right hip joint with mild subchondral marrow edema and cystic change in the femoral head. There is also mild subchondral marrow edema in the right acetabulum. There are small joint effusions bilaterally. There is a tear of the anterior left hip labrum with diffuse fraying of the remaining left hip labrum There is no paralabral cyst. Other surrounding soft tissue structures demonstrate no abnormal signal. The visualized intrapelvic structures appear unremarkable. IMPRESSION: Moderately severe arthritic changes left hip joint as discussed in detail above. Fairly large subchondral cysts are seen in the left femoral head. There is a large spur of the lateral aspect of the femoral head. There is diffuse fraying of the left hip labrum with a focal tear of the anterior labrum. There are no definite signs of avascular necrosis of the left femoral head. Note is also made of moderate arthritic change at the right hip joint. Electronically Signed by Chacho Sullivan MD 10/19/2019 04:55 P
== END ==
LOC: M RAD 10:34
PROVIDERS: ATTEND Orthopaedic Surgery
DX: M16.0 Bilateral primary osteoarthritis of hip (principal)

== ENCOUNTER → 2020-03-25 | Outpatient (RCR) | payer OTHER | LOC: M OT 10:09 | PROVIDERS: ATTEND Physician Assistant | DX: S06.0X1A Concussion with loss of consciousness of 30 minutes or less, initial encounter (principal); G44.319 Acute post-traumatic headache, not intractable; H53.9 Unspecified visual disturbance; R42 Dizziness and giddiness; M54.2 Cervicalgia; R45.86 Emotional lability; G47.9 Sleep disorder, unspecified ==

== ENCOUNTER → 2022-01-19 | Outpatient (CLI) | payer OTHER ==
[2022-01-19 12:51] LABS: BASO # 0.1 10^3/uL (0.0-0.2); BASO % 0.8 % (0.0-1.0); EOS # 0.1 10^3/uL (0.0-0.5); HEMATOCRIT 43.6 % (42.0-52.0); HEMOGLOBIN 14.3 g/dl (13.5-17.5); LYMPH # 1.6 10^3/uL (1.5-5.0); LYMPH % 26.4 % (24.0-44.0); MEAN CORPUSCULAR HEMOGLOBIN 30.6 pg (27.0-33.0); MEAN CORPUSCULAR HGB CONC 32.8 g/dl (32.0-36.5); MEAN CORPUSCULAR VOLUME 93.4 fl (80.0-96.0); MONO # 0.5 10^3/uL (0.0-0.8); NEUTROPHILS # 3.9 10^3/uL (1.5-8.5); NEUTROPHILS % 63.6 % (36.0-66.0); PLATELET COUNT, AUTOMATED 256 10^3/uL (150-450); RED BLOOD COUNT 4.67 10^6/uL (4.30-6.10); WHITE BLOOD COUNT 6.1 10^3/uL (4.0-10.0)
[2022-01-19 13:37] LABS: ERYTHROCYTE SEDIMENTATION RATE 6 mm/hr (0-15)
[2022-01-19 13:59] LABS: ALBUMIN 3.9 GM/DL (3.2-5.2); ALT/SGPT 23 U/L (12-78); BILIRUBIN,TOTAL 0.6 MG/DL (0.2-1.0); BLOOD UREA NITROGEN 15 MG/DL (7-18); CALCIUM LEVEL 9.1 MG/DL (8.5-10.1); CARBON DIOXIDE LEVEL 27 MEQ/L (21-32); CHLORIDE LEVEL 108 MEQ/L (98-107); CHOLESTEROL LEVEL 159 MG/DL (<200); CHOLESTEROL RISK RATIO 2.564 (<5); CREATININE FOR GFR 1.16 MG/DL (0.70-1.30); FREE T3 2.6 PG/ML (2.2-4.0); FREE T4 0.95 NG/DL (0.76-1.46); GLOMERULAR FILTRATION RATE > 60.0 (>60); GLUCOSE, FASTING 93 MG/DL (70-100); HDL CHOLESTEROL 62 MG/DL (>40); LDL CHOLESTEROL 84 MG/DL (<100); NON-HDL-C 97 MG/DL; POTASSIUM SERUM 4.5 MEQ/L (3.5-5.1); RHEUMATOID FACTOR QUANT < 10.0 IU/ML (<15.0); SODIUM LEVEL 141 MEQ/L (136-145); TOTAL PROTEIN 7.1 GM/DL (6.4-8.2); TRIGLYCERIDES LEVEL 66 MG/DL (<150); URIC ACID 4.9 MG/DL (3.5-7.2)
[2022-01-20 16:54] LABS: THYROID PEROXIDASE ANTIBODY 36.2 U/ML (<60.0)
[2022-01-20 16:55] LABS: THYROGLOBULIN ANTIBODY < 15.0 U/ML (<60.0)
== END ==
LOC: M WUC 10:00
PROVIDERS: ATTEND Family Medicine
DX: E66.9 Obesity, unspecified (principal); M25.50 Pain in unspecified joint; R10.31 Right lower quadrant pain

== ENCOUNTER → 2022-09-16 | Outpatient (CLI) | payer OTHER ==
[2022-09-16 19:23] LABS: BASO % 0.6 % (0.0-1.0); EOS # 0.1 10^3/uL (0.0-0.5); EOS % 1.1 % (0.0-3.0); HEMATOCRIT 43.2 % (42.0-52.0); HEMOGLOBIN 14.1 g/dl (13.5-17.5); LYMPH # 1.3 10^3/uL (1.5-5.0); MEAN CORPUSCULAR HEMOGLOBIN 29.9 pg (27.0-33.0); MEAN CORPUSCULAR HGB CONC 32.6 g/dl (32.0-36.5); MEAN CORPUSCULAR VOLUME 91.7 fl (80.0-96.0); MONO # 0.6 10^3/uL (0.0-0.8); MONO % 8.1 % (2.0-8.0); NEUTROPHILS # 5.2 10^3/uL (1.5-8.5); NEUTROPHILS % 72.1 % (36.0-66.0); PLATELET COUNT, AUTOMATED 293 10^3/uL (150-450); RED BLOOD COUNT 4.71 10^6/uL (4.30-6.10); WHITE BLOOD COUNT 7.2 10^3/uL (4.0-10.0)
[2022-09-16 19:47] LABS: PERCENT SATURATION 13.2 % (19.7-50.0)
[2022-09-16 19:50] LABS: FERRITIN 205.7 NG/ML (10.5-307.3)
== END ==
LOC: M WUC 15:41
PROVIDERS: ATTEND Orthopaedic Surgery
DX: M16.11 Unilateral primary osteoarthritis, right hip (principal); M25.551 Pain in right hip

== ENCOUNTER → 2022-10-09 | Outpatient (CLI) | payer OTHER ==
[2022-10-09 16:40] LABS: BASO % 0.4 % (0.0-1.0); EOS # 0.1 10^3/uL (0.0-0.5); EOS % 0.9 % (0.0-3.0); HEMATOCRIT 41.4 % (42.0-52.0); HEMOGLOBIN 13.7 g/dl (13.5-17.5); LYMPH % 29.1 % (24.0-44.0); MEAN CORPUSCULAR HEMOGLOBIN 29.8 pg (27.0-33.0); MEAN CORPUSCULAR HGB CONC 33.1 g/dl (32.0-36.5); MONO # 0.5 10^3/uL (0.0-0.8); MONO % 7.4 % (2.0-8.0); NEUTROPHILS # 4.3 10^3/uL (1.5-8.5); NEUTROPHILS % 61.9 % (36.0-66.0); PLATELET COUNT, AUTOMATED 270 10^3/uL (150-450); WHITE BLOOD COUNT 6.9 10^3/uL (4.0-10.0)
[2022-10-09 16:57] LABS: INR 0.99; PROTHROMBIN TIME 13.3 SECONDS (12.5-14.5)
[2022-10-09 16:58] LABS: PARTIAL THROMBOPLASTIN TIME 34.2 SECONDS (24.8-34.2)
[2022-10-09 17:00] LABS: HEMOGLOBIN A1c 5.5 % (4.0-6.0)
[2022-10-09 17:16] LABS: IRON (FE) 68 UG/DL (65-175)
[2022-10-09 18:22] LABS: ALKALINE PHOSPHATASE 70 U/L (46-116); ALT/SGPT 18 U/L (7.0-40); AST/SGOT 16 U/L (<34); BILIRUBIN,TOTAL 0.9 MG/DL (0.3-1.2); BLOOD UREA NITROGEN 20 MG/DL (9-23); CALCIUM LEVEL 8.9 MG/DL (8.5-10.1); CARBON DIOXIDE LEVEL 26 MMOL/L (20-31); CHLORIDE LEVEL 104 MMOL/L (98-107); CHOLESTEROL LEVEL 131 MG/DL (<200); CHOLESTEROL RISK RATIO 3.42 (<5); CREATININE FOR GFR 1.17 MG/DL (0.70-1.30); FREE T4 1.08 NG/DL (0.89-1.76); GLOMERULAR FILTRATION RATE > 60.0 (>60); GLUCOSE, FASTING 68 MG/DL (60-100); HDL CHOLESTEROL 38.2 MG/DL (>40); LDL CHOLESTEROL 73.6 MG/DL (<100); NON-HDL-C 92.8 MG/DL; POTASSIUM SERUM 3.8 MMOL/L (3.5-5.1); SODIUM LEVEL 136 MMOL/L (136-145); THYROID PEROXIDASE ANTIBODY 38 U/ML (<60.0); THYROID STIMULATING HORMONE 3.029 uIU/ML (0.55-4.78); TOTAL PROTEIN 6.8 G/DL (5.7-8.2); TRIGLYCERIDES LEVEL 96 MG/DL (<150)
== END ==
LOC: M WUC 15:18
PROVIDERS: ATTEND Family Medicine
DX: E03.9 Hypothyroidism, unspecified (principal)

== ENCOUNTER → 2022-10-11 | Outpatient (REF) | payer OTHER ==
[2022-10-11 10:11] LABS: APPEARANCE, URINE CLEAR (CLEAR); BACTERIA, URINE AUTO NEGATIVE (NEGATIVE); BILIRUBIN, URINE AUTO NEGATIVE (NEGATIVE); BLOOD, URINE BLOOD NEGATIVE (NEGATIVE); COLOR, URINE YELLOW (YELLOW); GLUCOSE, URINE (UA) AUTO NEGATIVE (NEGATIVE); KETONE, URINE AUTO NEGATIVE (NEGATIVE); LEUKOCYTE ESTERASE, URINE AUTO NEGATIVE (NEGATIVE); MUCUS, URINE SMALL (NEGATIVE); NITRITE, URINE AUTO NEGATIVE (NEGATIVE); PROTEIN, URINE AUTO NEGATIVE (NEGATIVE); RBC, URINE AUTO 1 /HPF (0-3); SQUAMOUS EPITHELIAL CELL UR AU 0 /HPF (0-6); UROBILINOGEN, URINE AUTO 0.2 mg/dL (0.0-2.0); WBC, URINE AUTO 1 /HPF (0-3)
== END ==
LOC: M LAB REF 09:31
PROVIDERS: ATTEND Family Medicine
DX: M19.90 Unspecified osteoarthritis, unspecified site (principal)

== ENCOUNTER → 2024-04-01 | Outpatient (CLI) | payer OTHER ==
[2024-04-01 08:51] LABS: BASO % 0.6 % (0.0-1.0); EOS # 0.1 10^3/uL (0.0-0.5); EOS % 1.1 % (0.0-3.0); HEMATOCRIT 42.6 % (42.0-52.0); HEMOGLOBIN 14.4 g/dl (13.5-17.5); LYMPH # 1.5 10^3/uL (1.5-5.0); LYMPH % 24.4 % (24.0-44.0); MEAN CORPUSCULAR HEMOGLOBIN 30.8 pg (27.0-33.0); MEAN CORPUSCULAR HGB CONC 33.8 g/dl (32.0-36.5); MEAN CORPUSCULAR VOLUME 91.2 fl (80.0-96.0); MONO # 0.5 10^3/uL (0.0-0.8); MONO % 7.4 % (2.0-8.0); NEUTROPHILS # 4.1 10^3/uL (1.5-8.5); NEUTROPHILS % 66.2 % (36.0-66.0); PLATELET COUNT, AUTOMATED 253 10^3/uL (150-450); RED BLOOD COUNT 4.67 10^6/uL (4.30-6.10); WHITE BLOOD COUNT 6.2 10^3/uL (4.0-10.0)
[2024-04-01 09:22] LABS: ALBUMIN 3.9 G/DL (3.2-5.2); ALKALINE PHOSPHATASE 72 U/L (46-116); ALT/SGPT 26 U/L (7.0-40); AST/SGOT 15 U/L (<34); BILIRUBIN,TOTAL 0.7 MG/DL (0.3-1.2); BLOOD UREA NITROGEN 20 MG/DL (9-23); CARBON DIOXIDE LEVEL 27 MMOL/L (20-31); CHLORIDE LEVEL 108 MMOL/L (98-107); CHOLESTEROL LEVEL 160 MG/DL (<200); CHOLESTEROL RISK RATIO 3.47 (<5); CREATININE FOR GFR 1.14 MG/DL (0.70-1.30); FREE T4 1.14 NG/DL (0.89-1.76); GLOMERULAR FILTRATION RATE > 60.0 (>60); GLUCOSE, FASTING 94 MG/DL (60-100); LDL CHOLESTEROL 103.2 MG/DL (<100); POTASSIUM SERUM 4.5 MMOL/L (3.5-5.1); SODIUM LEVEL 139 MMOL/L (136-145); TOTAL 25(OH) VITAMIN D 24.2 NG/ML (20.0-100.0); TRIGLYCERIDES LEVEL 54 MG/DL (<150)
[2024-04-01 09:24] LABS: THYROID STIMULATING HORMONE 2.966 uIU/ML (0.55-4.78)
== END ==
LOC: M LAB 08:26
PROVIDERS: ATTEND Family Medicine
DX: E66.9 Obesity, unspecified (principal); E55.9 Vitamin D deficiency, unspecified; D64.9 Anemia, unspecified

== ENCOUNTER → 2024-04-11 | Outpatient (CLI) | payer OTHER | LOC: M RAD 07:00 | PROVIDERS: ATTEND Family Medicine | DX: K42.9 Umbilical hernia without obstruction or gangrene (principal) ==